=== PATIENT | male | born 1985 | race Caucasian/White ===

== ENCOUNTER 2019-09-18 15:59 | Emergency (ER) | payer MEDICAID ==
[~2019-09-18] VITALS: Ht 180.3 cm; Wt 90.0 kg
[2019-09-18 16:42] VITALS: BP 100/74
[2019-09-18] MEDS ORDERED: IBUPROFEN 600MG TABLET PO ONE (18:30)
== END 2019-09-18 19:01 | disposition home or self-care (01) ==
LOC: ER 15:59
DX: H10.89 Other conjunctivitis (principal)
CPT/HCPCS: 99283